=== PATIENT | female | born 1985 | race Caucasian/White ===

== ENCOUNTER 2016-07-22 09:54 | Emergency (ER) | payer MEDICAID ==
[2016-07-22 10:03] VITALS: BP 131/66
--- NOTE | 2016-07-22 10:11 | ERNOTE ---
Medical Problem HPI - Narrative Date of Service: 07/22/16 - General Chief Complaint: Nausea/Vomiting Time Seen by Provider: 07/22/16 10:09 Source: patient, RN notes reviewed Exam Limitations: no limitations - Immun/Allergies/Home Medications Immunizations: IMMUNIZATION HX Immunizations Up to Date Yes History of Influenza Vaccine No Hx Pneumococcal Vaccination No Allergies/Adverse Reactions: Allergies onion Allergy (Verified 07/22/16 10:03) Swelling of Throat Home Medications: HOME MEDICATIONS NK [No Home Medication] 07/22/16 [Last Taken Unknown] - History of Present History Narrative: 30 y/o female to ED by private vehicle for nausea and vomiting that began early this morning. She reports feeling dizzy and ill yesterday and getting sent home from work. She also had diarrhea yesterday evening. She denies sick contacts at home. She has not been able to tolerate any oral intake today. She has not taken anything for her symptoms. Date (Duration): 07/22/16 Time (Timing): 05:00 Review of Systems - Review of Systems Constitutional: Present: fatigue, malaise. Absent: recent illness, fever, chills EYE: Present: no symptoms reported ENT: Present: ear pain, nose congestion. Absent: ear discharge, nasal drainage , sore throat Respiratory: Absent: shortness of breath, cough Cardiology: Absent: palpitations, syncope Gastrointestinal/Abdominal: Present: nausea, vomiting, diarrhea, eating less, drinking less. Absent: abdominal pain Genitourinary: Absent: frequency, dysuria Musculoskeletal: Absent: muscle pain, joint pain Skin: Absent: rash, lesions Neurological: Present: headache, dizziness/light-headedness Endocrine: Present: no symptoms reported Hematologic/Lymphatic: Present: no symptoms reported Psych: Present: no symptoms reported - Patient's Past Medical History Patient History - Medical: Anemia, Depression, Migraines, Obesity Patient History - Cardiac/Respiratory: No pertinent hx Patient History - Cancer: No Hx of Cancer Patient History - Surgical Procedures: Ear Tubes, T & A, Other Patient History - Other: None LMP (females 10-50): Nexplanon - Family History Mother Family History - Medical: No pertinent hx Father Family History - Medical: History Unknown Grandfather-Maternal Family History - Medical: Family History - Cardiac/Respiratory: Coronary Heart Disease, Myocardial Infarction Grandmother-Paternal Family History - Medical: Diabetes Type 2 Family History - Cardiac/Respiratory: No pertinent hx Grandfather-Paternal Family History - Medical: , No pertinent hx Family History - Cardiac/Respiratory: No pertinent hx Sister Family History - Cardiac/Respiratory: Asthma - Social History Living Situations: spouse Abuse History: No History of abuse Psych History: Hx of Depression Does anyone smoke in the home?: Yes Smoking Status: Current every day smoker Cigarettes Packs Per Day: 0.3 Have you smoked in the past 12 months: Yes Alcohol Use: rarely Drug Use: none - Immunizations Immunizations Up to Date: Yes Hx Pneumococcal Vaccination: No History of Influenza Vaccine: No Physical Exam - Physical Exam General Appearance: Present: wd/wn, alert, no apparent distress, obese, other - disheveled, poor hygiene Eye Exam: Normal inspection: bilateral Ears, Nose, Throat: Present: hearing grossly normal, nasal congestion, normal pharynx. Absent: abnormal TM (R), abnormal TM (L), sinus pain/drainage Neck: Present: normal inspection, nontender, supple Respiratory: Present: no respiratory distress, normal breath sounds, no accessory muscle use, lungs clear Cardiovascular/Chest: Present: regular rate, rhythm, no murmur, normal peripheral pulses Gastrointestinal/Abdominal: Present: normal bowel sounds, nontender, nondistended, soft Back Exam: Present: normal inspection, no CVA tenderness Extremity Exam: Present: normal inspection, no edema Neurological Exam: Present: alert, oriented, normal mood/affect, no motor/ sensory deficits Skin Exam: Present: normal color, warm/dry ED Progress - Vital Signs Patient's Vital Signs:: I have reviewed the patient's vital signs. Vital Signs: Vital Signs 07/22/16 09:58 Temperature 36.2 C L Pulse Rate 90 Respiratory 16 Rate Blood Pressure 131/66 O2 Sat by Pulse 96 Oximetry - Progress/Reassessment Chief Complaint: Nausea/Vomiting Progress:: Improved Departure - Departure Clinical Impression: Viral gastroenteritis Disposition: Home self-care Condition: Stable Instructions: Viral Gastroenteritis, Adult, [id number], Form - Excuse from Work, School, or Physical Activity Additional Instructions: Small amounts of liquids and advance diet as tolerated as discussed Rest Good handwashing
[2016-07-22] MEDS ORDERED: PROMETHAZINE HCL 50 MG/ML AMPUL IM ONE ×2 (10:22→10:24)
== END 2016-07-22 10:34 | disposition home or self-care (01) ==
LOC: ER 09:54
DX: A08.4 Viral intestinal infection, unspecified (principal); F17.210 Nicotine dependence, cigarettes, uncomplicated